=== PATIENT | female | born 1990 | race Caucasian/White ===

== ENCOUNTER 2020-12-17 14:54 | Emergency (ER) | payer OTHER ==
[2020-12-17 17:53] LABS: BASOPHIL 0.5 % (0-2); EOSINOPHIL 0.3 % (0-5); HCT 49.2 % (37.0-47.0); HGB 16.3 g/dl (12.5-16.0); LYMPHOCYTE 16.7 % (15-48); MCH 30.1 pg (25.0-31.0); MCHC 33.1 g/dL (32.0-36.0); MCV 90.8 fL (78.0-100.0); MONOCYTE 9.3 % (0-12); MPV 10.2 fL (6.0-9.5); NEUTROPHIL 72.5 % (41-80); NRBC 0; PLT 161 K/uL (150-400); RBC 5.42 M/uL (4.20-5.40); RDW 12.3 % (11.5-14.0)
[2020-12-17 17:55] LABS: WBC 5.9 K/uL (4.0-10.5)
[2020-12-17 18:11] LABS: ALBUMIN 3.6 g/dL (3.4-5.0); BILIRUBIN - TOTAL 0.3 mg/dL (0.2-1.0); CREATININE 0.9 mg/dL (0.51-0.95); GLOBULIN (CALCULATION) 4.4 g/dL
== END 2020-12-17 21:30 | disposition home or self-care (01) ==
LOC: FER 14:54
PROVIDERS: Emergency Medicine
DX: U07.1 COVID-19 (principal); J12.82 Pneumonia due to coronavirus disease 2019
CPT/HCPCS: 36415; 71045; 71275; 80053; 84484; 85025; 85379; 93005; J7030; Q9967